=== PATIENT | female | born 1960 | race Caucasian/White ===

== ENCOUNTER 2017-08-07 12:58 | Emergency (ER) | payer OTHER ==
[~2017-08-07] VITALS: Ht 162.6 cm; Wt 47.6 kg
[~2017-08-07 12:58] MED LIST: ALBU90OI INH; ALBU90OI6 INH; BENZ100A PO; Cheratussin AC118 ML PO; Mucinex600 MG PO; Prednisone20 MG PO; Zithromax250 MG PO
[2017-08-07] MEDS ORDERED: DICL25ER PO (13:54)
[2017-08-07] MEDS ORDERED: METPRE4DP PO (13:54)
== END 2017-08-07 13:57 | disposition home or self-care (01) ==
LOC: ER 12:58
DX: M76.32 Iliotibial band syndrome, left leg (principal); M70.62 Trochanteric bursitis, left hip; F17.210 Nicotine dependence, cigarettes, uncomplicated
CPT/HCPCS: 99283